=== PATIENT | female | born 2000 | race Hispanic/Latino ===

== ENCOUNTER 2021-08-28 05:36 | Inpatient (IN) | payer MEDICAID ==
[2021-08-24 10:34] LABS: Hemoglobin 11.6 gm/dl (10.1-14.3); Mean Corpuscular HGB Conc 32 % (30-34); Mean Corpuscular Volume 93 fl (79-97); Platelet Count 245 K/mm3 (140-440); Red Blood Count 3.88 M/mm3 (3.65-5.03); Red Cell Distribution Width 15.2 % (13.2-15.2)
--- NOTE | 2021-08-27 21:37 | History and Physical Report ---
History of Present Illness Date of examination: 08/21/21 Chief complaint: Scheduled section History of present illness: Pt is a 21 year old female TRISH 08/31/21 at 39w4d presents for scheduled section secondary to recurrent herpetic outbreaks despite Valtrex prophylaxis since 32 wks. She reports irregular contractions, and denies vaginal bleeding or leakage of fluid. She has had care at [facility] since 10 wks complicated by aforementioned genital herpes, asthma, palpitations s/p cardiology referral in June 2021 with resolution of this sympt om, size less than dates s/p growth scan, and anxiety. She is GBS negative. Past History Past Surgical History: no surgical history MAKE UP GIRL History: chlamydia (remote history ), trichomonas (remote history) Family/Genetic History: diabetes, cancer Social history: no significant social history - Obstetrical History Expected Date of Delivery: 08/31/21 Actual Gestation: 39 Week(s) 3 Day(s) : 2 Para: 0 Hx # Term Pregnancies: 0 Number of Pregnancies: 0 Spontaneous Abortions: 0 Induced : 1 Number of Living Children: 0 Medications and Allergies Allergies Allergy/AdvReac Type Severity Reaction Status Date / Time No Known Allergies Allergy Unverified 08/23/21 11:54 Home Medications Medication Instructions Recorded Confirmed Last Taken Type valACYclovir [Valtrex] 500 mg PO DAILY 08/23/21 08/23/21 Unknown History Review of Systems All systems: negative - Vital Signs Vital signs: Vital Signs Temp Pulse Resp BP Pulse Ox 98.7 F 109 H 20 118/56 96 08/24/21 10:20 08/24/21 10:20 08/24/21 10:20 08/24/21 10:20 08/24/21 10:20 Temp Pulse Resp BP Pulse Ox 98.7 F 109 H 20 118/56 96 08/24/21 10:20 08/24/21 10:20 08/24/21 10:20 08/24/21 10:20 08/24/21 10:20 - Physical Exam Breasts: Positive: deferred Abdomen: Positive: soft (gravid ) Uterus: Positive: enlarged (gravid ) - Obstetrical FHR: auscultation normal Uterine Contraction Monitor Mode: External Uterine Contraction Pattern: Irregular Uterine Tone Measurement Phase: Resting Results Result Diagrams: 08/24/21 06:00 All other labs normal. Assessment and Plan A: IUP at 39w4d Herpetic Outbreak Asthma Anxiety GBS negative P: Proceed with primary section and other indicated procedures
[2021-08-28] MEDS ORDERED: BICITRA ORAL LIQD 30ML PO ONE (06:00)
[2021-08-28] MEDS ORDERED: OXYTOCIN DRIP 30 UNITS/500 ML BAG IV SCH ×2 (06:00→12:00)
[2021-08-28] MEDS ORDERED: ceFAZolin/Water 2 GM/20 ML 2 GM/20 ML SYRINGE IV NR (06:00)
[2021-08-28] MEDS ORDERED: METOCLOPRAMIDE 10 MG/2 ML INJ IV ONE (06:00)
[2021-08-28] MEDS ORDERED: FAMOTIDINE 20 MG/2 ML INJ IV ONE (06:00)
[2021-08-28] MEDS: LACTATED RINGERS 1,000 ML IV SCH ×2 (06:33→07:18)
--- NOTE | 2021-08-28 06:43 | Anesthesia Day of Surgery ---
Anesthesia Day of Surgery - Day of Surgery Patient Examined: Yes Patient H&P Reviewed: Yes Patient is NPO: Yes
--- NOTE | 2021-08-28 06:45 | Anesthesia Consultation ---
Anesthesia Consult and Med Hx Date of service: 08/28/21 - Airway Anesthetic Teeth Evaluation: Good ROM Head & Neck: Adequate Mental/Hyoid Distance: Adequate Mallampati Class: Class II Intubation Access Assessment: Probably Good - Pulmonary Exam CTA: Yes - Cardiac Exam Cardiac Exam: RRR - Pre-Operative Health Status ASA Pre-Surgery Classification: ASA2 Proposed Anesthetic Plan: Spinal - Pulmonary Hx Smoking: No Hx Asthma: Yes (As a child) Hx Respiratory Symptoms: No - Cardiovascular System Hx Hypertension: No - Central Nervous System Hx Neuromuscular Disorder: No Hx Seizures: No Hx Back Pain: No Hx Psychiatric Problems: No - Gastrointestinal Hx Ulcer: No Hx Gastroesophageal Reflux Disease: Yes - Endocrine Hx Renal Disease: No Hx Liver Disease: No Hx Insulin Dependent Diabetes: No Hx Non-Insulin Dependent Diabetes: No Hx Thyroid Disease: No - Hematic Hx Anemia: No - Other Systems Hx Alcohol Use: No Hx Substance Use: No Hx Cancer: No Hx Obesity: No
[2021-08-28] MEDS ORDERED: miSOPROStol 200 MCG TAB VG SCH (08:00)
[2021-08-28] MEDS ORDERED: ceFAZolin/STERILE WATER 2 GM/20 ML SYRINGE IV ONE (08:09)
[2021-08-28] MEDS ORDERED: SODIUM CHLORIDE 0.9% IRR 1,500 ML BOTTLE IR ONE (08:18)
[2021-08-28] MEDS ORDERED: WATER FOR IRRIG STERILE 1,500 ML BOTTLE IR ONE (08:18)
[2021-08-28] MEDS ORDERED: ONDANSETRON 4 MG/2 ML INJ ONE (08:25)
[2021-08-28] MEDS ORDERED: TRANEXAMIC ACID 1,000 MG/10 ML ONE (08:25)
[2021-08-28] MEDS ORDERED: ePHEDrine SULFATE 50 MG/1 ML INJ ONE (08:25)
[2021-08-28] MEDS ORDERED: SODIUM CHLORIDE 0.9% 100 ML ONE (08:27)
[2021-08-28] MEDS ORDERED: METHYLERGONOVINE MALEATE 0.2 MG/ML VIAL IM ONE (08:52)
[2021-08-28] MEDS ORDERED: miSOPROStol 200 MCG TAB ONE (08:52)
[2021-08-28] MEDS ORDERED: dexAMETHasone 20 MG/5 ML VIAL ONE (09:24)
[2021-08-28] MEDS ORDERED: OXYTOCIN 10 UNIT/1 ML INJ ONE (09:24)
[2021-08-28] MEDS ORDERED: BUPIVACAINE/PF (0.5%) 5 MG/1 ML 30 ML VIAL INFILTRATI ONE ×2 (09:24→09:27)
--- NOTE | 2021-08-28 09:34 | Procedure Note ---
OB Delivery Note - Delivery Date of Delivery: 08/28/21 Surgeon: BRODY CHARLES Estimated blood loss: other (860 mL) - Section Preop diagnosis: other (Herpetic Outbreak ) Postop diagnosis: same section procedure: section, primary low transverse Disposition: PACU Complications: uterine atony Narrative: Please see operative report - A at 1 minute: 8 at 5 minutes: 9 Gender: Female (3500g (7lb 11oz) @ 0839 am)
--- NOTE | 2021-08-28 09:40 | Operative Report ---
Operative Report Operative Report: Date of procedure: August 28, 2021 Preoperative diagnosis: 1) IUP at 30w4d 2) Herpetic Outbreak Postoperative diagnosis: Same 3) Uterine Atony Procedure: Primary low transverse section Surgeon: Hattie Sears M.D. Anesthesia: Regional Findings: 1) Viable female , Apgars 8 and 9, weight 3500 g, (7 lb 11 oz) in cephalic presentation. Terminal meconium 2) Normal-appearing uterus ovaries and tubes Estimated blood loss: 860 mL IV fluids: 2000 mL Urine output: 300 mL, clear at the end of the procedure Drains: Wolff to gravity Specimens: None Complications:None. Counts correct x 3 Disposition: Stable to PACU Indication for procedure: Pt is a 21 year old at 39w4d who presents for scheduled section secondary to recent herpetic outbreak. Operation in detail: After the risks, benefits, alternatives and complications were explained to the patient she gave informed consent for the procedure. She was subsequently taken to the operating room where regional anesthesia was noted to be adequate. She was placed in the dorsal supine position with leftward tilt and prepped and draped in a normal sterile fashion. heart tones were noted prior to incision. A timeout was performed. A Pfannenstiel skin incision was made with the knife and carried down to the layer of the fascia with the Bovie. The fascia was incised in the midline and the fascial incision was extended bilaterally with the Bovie. The fascial incision was then stretched. The rectus muscles were then in the midline for adequate visualization. The peritoneum was then entered bluntly. The peritoneal incision was extended with good visualization of the bladder. The peritoneal incision was then stretched. An Ron retractor was placed. The bladder blade was then placed. The vesicouterine peritoneum was grasped with smooth pick ups and incised with Metzenbaum scissors. A bladder flap was then created digitally and the bladder blade was replaced. A transverse incision was made in the lower uterine segment with a knife and extended bilaterally with the bandage scissors. Amniotomy was performed with egress of clear fluid. head delivered with ease, followed by shoulders and body. bulb suctioned at delivery. Cord clamped and cut. handed to NICU staff in attendance. Cord blood was collected. The placenta was then delivered manually. The uterus was then exteriorized and cleared of all clots and debris. Uterine atony was noted and the patient was given additional pitocin in her IV fluids, Transexamic Acid, and Methergine 0.2 mg I with improvement in uterine tone. The hysterotomy was then reapproximated with 0 Monocryl in a running locked fashion. A second layer of the same suture was used in imbricating fashion. The hysterotomy was inspected and hemostasis was noted. The gutters were irrigated and cleared of all clots and debris. The uterus was placed back into the peritoneal cavity. The hysterotomy was again inspected and noted to be hemostatic. Surgicel was placed over the hysterotomy. The Ron retractor was removed. The peritoneum was reapproximated with 0 Monocryl in a running fashion incorporating the rectus muscles. Surgicel was placed over the rectus muscles. The fascia was reapproximated with 0 Vicryl in a running fashion. The subcutaneous tissue was reapproximated with 3-0 Vicryl in a running fashion. The skin was reapproximated with 3-0 Monocryl in a subcuticular fashion. The incision was then covered with steri strips and a pressure dressing. The procedure was then ended. The patient tolerated the procedure well and was taken to the PACU in stable condition. All instrument, lap, and needle counts were correct 3. The patient will also receive misoprostol 800 mcg per rectum.
--- NOTE | 2021-08-28 09:58 | Progress Note ---
Spinal Anesthesia Block - Spinal Anesthesia Block Start Time: 07:55 Stop Time: 08:03 Performed by:: MODESTO RIOJAS Procedure: Patient IDed, H&P reviewed, all questions and concerns were answered, and consent was signed. Timeout was performed at bedside. Patient in sitting position. Sterile prep and drape was performed. [3] ml of 1% lidocaine skin wheal at L[3]- L [4]. Needle introducer advanced. 25 gauge spinal needle advanced. Clear, free flowing CSF. negative blood, negative paresthesia. Spinal dose given. All needles removed. Patient tolerated procedure.
--- NOTE | 2021-08-28 09:59 | Progress Note ---
Regional Anesthesia Block - Regional Anesthesia Block Start Time: :51 Stop Time: :53 Performed By:: MODESTO RIOJAS Procedure: Patient consented for TAP block for post surgical pain management. Patient identified, monitors placed, and time out performed. TAP identified bilaterally via ultrasound. Skin prepped bilaterally with [chlorhexidine] and [22g stimuplex] needle advanced to the TAP. [Marcaine 0.25% 35ml] injected under ultrasound guidance on the [left] side. [Marcaine 0.25% 35ml] injected under ultrasound guidance on the [right] side. Negative aspiration every 5mL, No change in heart rate or rhythm. Patient tolerated the procedure well. No apparent complications seen.
[2021-08-28] MEDS ORDERED: miSOPROStol 25 MCG TAB VG ONE (10:04)
[2021-08-28] MEDS ORDERED: oxyCODONE /ACETAMINOPHEN 5-325MG TAB PO PRN (11:34)
[2021-08-28] MEDS ORDERED: ACETAMINOPHEN 325 MG TAB PO PRN (12:00)
[2021-08-28] MEDS ORDERED: NALOXONE 0.4 MG/1 ML INJ IV PRN (12:00)
[2021-08-28] MEDS ORDERED: SIMETHICONE 80 MG CHEW TAB PO PRN (12:00)
[2021-08-28] MEDS ORDERED: WITCH HAZEL/ GLYCERIN PAD TP PRN (12:00)
[2021-08-28] MEDS ORDERED: D5W/LACTATED RINGERS 1,000 ML IV SCH (12:00)
[2021-08-28] MEDS ORDERED: HYDROmorphone 1 MG/1 ML INJ IV PRN ×2 (12:00)
[2021-08-28] MEDS ORDERED: ONDANSETRON 4 MG/2 ML INJ IV PRN (12:00)
[2021-08-28] MEDS ORDERED: LANOLIN/ZINC/DIMETHICONE (LANSINOH) 7 GM TP PRN (12:00)
[2021-08-28] MEDS: IBUPROFEN 800 MG TAB PO SCH (12:02)
[2021-08-28] MEDS: KETOROLAC 30 MG/1 ML INJ IV SCH ×3 (12:15→23:26)
[2021-08-28] MEDS: ceFAZolin/NS 1 GM/50 ML 1 GM/50 ML BAG IV SCH ×2 (16:18→23:25)
[2021-08-29 00:23] LABS: Hematocrit 34.1 % (30.3-42.9); Hemoglobin 10.9 gm/dl (10.1-14.3)
[2021-08-29] MEDS: IBUPROFEN 800 MG TAB PO SCH ×3 (04:17→18:10)
[2021-08-29] MEDS: KETOROLAC 30 MG/1 ML INJ IV SCH (05:31)
--- NOTE | 2021-08-29 08:56 | Progress Note ---
Assessment and Plan A:POD#1 s/p Primary C/S at term P:Continue with routine care, if no complications anticipate discharge at 48hrs. Subjective - Subjective Date of service: 08/29/21 Principal diagnosis: POD#1 s/p Primary C/S at term Interval history: Patient is feeling well and without complaint. She reports decreasing lochia, adequate pain control, denies issues with ambulation, +flatus and +BM. Patient reports: appetite normal, voiding normally, pain well controlled, flatus, bowel movement, ambulating normally : doing well Objective - Vital Signs Latest vital signs: Vital Signs Temp Pulse Resp BP BP Pulse Ox Pulse Ox 08/29/21 07:59 98 08/29/21 07:56 97.9 F 88 20 120/70 98 08/29/21 05:31 20 08/29/21 00:25 98.5 F 101 H 20 103/57 97 08/28/21 23:26 20 08/28/21 20:40 99.4 F 110 H 20 112/64 95 08/28/21 19:35 98 08/28/21 16:06 97.6 F 101 H 18 128/73 97 08/28/21 11:10 98.7 F 79 14 116/68 99 08/28/21 10:28 98.4 F 84 17 119/70 99 08/28/21 10:15 98 H 16 117/72 99 08/28/21 10:00 83 16 108/63 98 08/28/21 09:45 78 18 113/58 98 08/28/21 09:40 76 17 113/55 98 08/28/21 09:36 98.7 F 81 15 108/58 96 Intake and Output 08/28/21 08/29/21 08/29/21 23:59 07:59 15:59 Intake Total 820 Output Total 2200 300 Balance -1380 -300 Intake: IV 50 ANCEF/NS 1 GM/50 ML 1 gm 50 In 50 ml @ 100 mls/hr IV Q8H [facility] Rx#:[id number] Oral 470 Intake, Free Water 300 Output: Urine 2200 300 Indwelling Catheter 1800 Void 400 300 Other: Total, Intake Amount 470 Total, Output Amount 400 300 # Voids Void 1 2 # Bowel Movements 1 - Exam Uterus: Present: normal, firm
--- NOTE | 2021-08-29 08:57 | Discharge Summary ---
Providers - Providers Date of Admission: 08/28/21 05:36 Date of discharge: 08/30/21 Attending physician: BRODY CHARLES 08/28/21 11:34 Consult to Independent Crop Consultant [CONS] Routine Reason For Exam: Primary care physician: BRODY CHARLES Hospitalization Reason for admission: section, IUP at term Delivery: Procedure: section Episiotomy: none complications: none Discharge diagnosis: IUP at term delivered [place] baby: female Condition at discharge: Good Disposition: 01 HOME / SELF CARE / HOMELESS Plan - Discharge Medications Prescriptions: Ibuprofen [Motrin] 600 mg PO Q8H PRN #30 tablet PRN Reason: Pain oxyCODONE /ACETAMINOPHEN [Percocet 5/325] 1 tab PO Q6HR PRN #30 tablet PRN Reason: Pain - Provider Discharge Summary Activity: routine, no sex for 6 weeks, no heavy lifting 4 weeks, no strenuous exercise Diet: routine Instructions: routine Additional instructions: [] Smoking cessation referral if applicable(refer to patient education folder for contact #) [] Refer to [facility]'s [facility] Booklet Call your doctor immediately for: * Fever > 100.5 * Heavy vaginal bleeding ( >1 pad per hour) * Severe persistent headache * Shortness of breath * Reddened, hot, painful area to leg or breast * Drainage or odor from incision. * Keep incision clean and dry at all times and follow doctor's instructions regarding bathing/showering - Follow up plan Follow up: [facility] [Advanced Practice Nurse] - 14 Days
[2021-08-29] MEDS ORDERED: MEASLES, MUMPS & RUBELLA 12,500 UNIT/0.5 ML VACCINE SUB-Q ONE (09:41)
[2021-08-29] MEDS ORDERED: TETANUS,DIPH,PERTUSS(ACELL) VACCINE 0.5 ML SYRINGE IM ONE (09:41)
--- NOTE | 2021-08-29 11:03 | Post Anesthesia Evaluation ---
- Post Anesthesia Evaluation Patient Participated: Yes Airway Patent: Yes Stable Respiratory Function: Yes Nausea/Vomiting: No Temp > 96.8F: Yes Pain Manageable: Yes Adequeate Hydration: Yes Anesthesia Complications: No Block Receding Appropriately: Yes Patient on Ventilator: No
[2021-08-30] MEDS: IBUPROFEN 800 MG TAB PO SCH (12:16)
[2021-08-30 15:42] VITALS: BP 109/66
== END 2021-08-30 15:45 | disposition home or self-care (01) | DRG 765 ==
LOC: APU 05:36 → OB 11:30
PROVIDERS: ADMIT Obstetrics & Gynecology; ATTEND Obstetrics & Gynecology
PROC: 10D00Z1 Extraction of Products of Conception, Low, Open Approach (ICD-10-PCS; principal; 2021-08-28)
PROC: 3E0T3BZ Introduction of Anesthetic Agent into Peripheral Nerves and Plexi, Percutaneous Approach (ICD-10-PCS; 2021-08-28)
PROC: 3E0234Z Introduction of Serum, Toxoid and Vaccine into Muscle, Percutaneous Approach (ICD-10-PCS; 2021-08-29)
DX: O77.0 Labor and delivery complicated by meconium in amniotic fluid (principal); O98.32 Other infections with a predominantly sexual mode of transmission complicating childbirth; Z3A.39 39 weeks gestation of pregnancy; Z37.0 Single live birth; Z20.822 Contact with and (suspected) exposure to COVID-19; Z23 Encounter for immunization; A60.00 Herpesviral infection of urogenital system, unspecified; O99.52 Diseases of the respiratory system complicating childbirth; J45.909 Unspecified asthma, uncomplicated; O99.344 Other mental disorders complicating childbirth; F99 Mental disorder, not otherwise specified; F41.9 Anxiety disorder, unspecified; O99.62 Diseases of the digestive system complicating childbirth; K21.9 Gastro-esophageal reflux disease without esophagitis; O75.89 Other specified complications of labor and delivery
CPT/HCPCS: 36415; 85014; 85018; 85027; 86592; 86850; 86900; 86901; G0378; J3490; J7060; J7121; J0690; J1100; J1885; J2210; J2405; J2590; J2765; J7120; U0003